=== PATIENT | female | born 1985 | race Caucasian/White ===

== ENCOUNTER 2021-03-08 15:10 | Emergency (ER) | payer MEDICARE, OTHER | END 2021-03-08 17:49 | disposition home or self-care (01) | LOC: FER 15:10 | DX: R56.9 Unspecified convulsions (principal); S00.83XA Contusion of other part of head, initial encounter; S80.12XA Contusion of left lower leg, initial encounter; Z90.710 Acquired absence of both cervix and uterus; Z88.5 Allergy status to narcotic agent; Z91.041 Radiographic dye allergy status; Z88.6 Allergy status to analgesic agent; Z88.8 Allergy status to other drugs, medicaments and biological substances; W01.10XA Fall on same level from slipping, tripping and stumbling with subsequent striking against unspecified object, initial encounter | CPT/HCPCS: 70486; 72125; 73590 ==

== ENCOUNTER 2021-08-23 23:22 | Emergency (ER) | payer MEDICARE, OTHER | END 2021-08-24 01:00 | disposition home or self-care (01) | LOC: FER 23:22 | DX: G43.909 Migraine, unspecified, not intractable, without status migrainosus (principal) | CPT/HCPCS: J1200; J2765; J3230; J7030 ==

== ENCOUNTER 2021-09-11 22:11 | Emergency (ER) | payer MEDICARE, OTHER ==
[2021-09-12 00:56] LABS: BASOPHIL 0.6 % (0-2); HCT 41.9 % (37.0-47.0); HGB 13.7 g/dl (12.5-16.0); MCH 30.4 pg (25.0-31.0); MCHC 32.7 g/dL (32.0-36.0); MCV 93.1 fL (78.0-100.0); MONOCYTE 6.7 % (0-12); MPV 9.3 fL (6.0-9.5); NEUTROPHIL 56.2 % (41-80); NRBC 0; PLT 340 K/uL (150-400); RDW 11.8 % (11.5-14.0); WBC 10.9 K/uL (4.0-10.5)
[2021-09-12 01:19] LABS: ALBUMIN 3.9 g/dL (3.4-5.0); BILIRUBIN - TOTAL 0.2 mg/dL (0.2-1.0); BUN/CREAT RATIO (CALC) 14.1 RATIO; CREATININE 0.78 mg/dL (0.51-0.95); GLOBULIN (CALCULATION) 3.7 g/dL; POTASSIUM 3.8 mmol/L (3.5-5.1); TOTAL PROTEIN 7.6 g/dL (6.4-8.2)
== END 2021-09-12 02:25 | disposition home or self-care (01) ==
LOC: FER 22:11
PROVIDERS: Emergency Medicine
DX: G43.909 Migraine, unspecified, not intractable, without status migrainosus (principal); I10 Essential (primary) hypertension; Z88.1 Allergy status to other antibiotic agents; Z88.5 Allergy status to narcotic agent; Z88.6 Allergy status to analgesic agent; Z91.041 Radiographic dye allergy status; Z88.8 Allergy status to other drugs, medicaments and biological substances; Z79.899 Other long term (current) drug therapy
CPT/HCPCS: 36415; 80053; 85025; J1200; J2765; J3230; J7030

== ENCOUNTER 2021-10-31 05:35 | Emergency (ER) | payer MEDICARE, OTHER | END 2021-10-31 08:00 | disposition home or self-care (01) | LOC: FER 05:35 | DX: G43.909 Migraine, unspecified, not intractable, without status migrainosus (principal) | CPT/HCPCS: J0780; J1200; J3230 ==

== ENCOUNTER 2022-01-12 00:38 | Emergency (ER) | payer MEDICARE, OTHER | END 2022-01-12 01:47 | disposition home or self-care (01) | LOC: FER 00:38 | DX: G43.909 Migraine, unspecified, not intractable, without status migrainosus (principal); Z88.5 Allergy status to narcotic agent; Z88.6 Allergy status to analgesic agent; Z88.2 Allergy status to sulfonamides; Z88.1 Allergy status to other antibiotic agents; Z91.041 Radiographic dye allergy status; Z91.048 Other nonmedicinal substance allergy status; Z28.311 Partially vaccinated for COVID-19 | CPT/HCPCS: J0780; J1200; J3230; J7040 ==

== ENCOUNTER 2022-02-09 20:27 | Emergency (ER) | payer OTHER | END 2022-02-09 22:09 | disposition left against medical advice (07) | LOC: FER 20:27 | DX: Z53.21 Procedure and treatment not carried out due to patient leaving prior to being seen by health care provider (principal) ==

== ENCOUNTER 2022-03-11 11:10 | Emergency (ER) | payer OTHER ==
[2022-03-11 12:01] LABS: BASOPHIL 0.7 % (0-2); HCT 40.4 % (37.0-47.0); HGB 13.1 g/dl (12.5-16.0); LYMPHOCYTE 29.2 % (15-48); MCH 30.5 pg (25.0-31.0); MCHC 32.4 g/dL (32.0-36.0); MONOCYTE 6.8 % (0-12); NEUTROPHIL 60.8 % (41-80); NRBC 0; PLT 344 K/uL (150-400); RDW 12.9 % (11.5-14.0); WBC 7.6 K/uL (4.0-10.5)
[2022-03-11 12:12] LABS: INR 1.01 (0.9-1.2); PTT 28.9 SECONDS (24.9-34.6)
[2022-03-11 12:13] LABS: D-DIMER < 0.27 ug/mLFEU (0.00-0.41)
[2022-03-11 12:13] LABS: CLARITY CLEAR (CLEAR); COLOR YELLOW (YELLOW); GLUCOSE (U) NORMAL (NORMAL); PROTEIN NEGATIVE (NEGATIVE)
[2022-03-11 12:14] LABS: BILIRUBIN NEGATIVE (NEGATIVE); BLOOD NEGATIVE Ery/uL (NEGATIVE); LEUKOCYTES NEGATIVE Leu/uL (NEGATIVE); NITRITE NEGATIVE (NEGATIVE); UROBILINOGEN 0.2 mg/dL (0.2-1.0)
[2022-03-11 12:39] LABS: CORONAVIRUS 2019 SARS-COV-2 NEGATIVE (NEGATIVE); INFLUENZA A NAA NEGATIVE (NEGATIVE)
[2022-03-11 12:50] LABS: ALBUMIN 3.9 g/dL (3.4-5.0); ALKALINE PHOSHATASE 85 U/L (46-116); ALT 64 U/L (14-59); AST 36 U/L (15-37); BILIRUBIN - TOTAL 0.3 mg/dL (0.2-1.0); BUN 9 mg/dL (7-18); CHLORIDE 108 mmol/L (98-107); CO2 (BICARBONATE) 24 mmol/L (21-32); CREATININE 0.75 mg/dL (0.51-0.95); GLOBULIN (CALCULATION) 3.5 g/dL; GLUCOSE 108 mg/dL (74-106); LIPASE 145 U/L (73-393); POTASSIUM 3.6 mmol/L (3.5-5.1); TOTAL PROTEIN 7.4 g/dL (6.4-8.2)
[2022-03-11] MEDS ORDERED: PHENERGAN25 M1 PO (13:14)
== END 2022-03-11 13:50 | disposition home or self-care (01) ==
LOC: FER 11:10
PROVIDERS: Internal Medicine
DX: R07.89 Other chest pain (principal); R42 Dizziness and giddiness; R11.2 Nausea with vomiting, unspecified; Z88.6 Allergy status to analgesic agent; Z88.5 Allergy status to narcotic agent; Z88.4 Allergy status to anesthetic agent; Z91.041 Radiographic dye allergy status; Z91.048 Other nonmedicinal substance allergy status; Z20.822 Contact with and (suspected) exposure to COVID-19
CPT/HCPCS: 36415; 71045; 80053; 81003; 83690; 83880; 84145; 84484; 85025; 85379; 85610; 85730; 93005; J2550; J3475; U0002

== ENCOUNTER 2022-03-14 17:20 | Emergency (ER) | payer OTHER ==
[~2022-03-14 17:20] MED LIST: PHENERGAN25 M1 PO
[2022-03-14 18:37] LABS: BASOPHIL 0.7 % (0-2); EOSINOPHIL 1.9 % (0-5); HCT 38.8 % (37.0-47.0); HGB 13.1 g/dl (12.5-16.0); LYMPHOCYTE 30.7 % (15-48); MCH 31.2 pg (25.0-31.0); MCHC 33.8 g/dL (32.0-36.0); MCV 92.4 fL (78.0-100.0); MONOCYTE 6.9 % (0-12); MPV 8.7 fL (6.0-9.5); NEUTROPHIL 59.4 % (41-80); NRBC 0; PLT 369 K/uL (150-400); WBC 11.8 K/uL (4.0-10.5)
[2022-03-14 19:00] LABS: ALBUMIN 3.7 g/dL (3.4-5.0); ALKALINE PHOSHATASE 89 U/L (46-116); ALT 57 U/L (14-59); AST 20 U/L (15-37); BILIRUBIN - TOTAL 0.2 mg/dL (0.2-1.0); BUN 7 mg/dL (7-18); BUN/CREAT RATIO (CALC) 8.9 RATIO; CHLORIDE 109 mmol/L (98-107); CO2 (BICARBONATE) 25 mmol/L (21-32); CREATININE 0.79 mg/dL (0.51-0.95); GLOBULIN (CALCULATION) 3.4 g/dL; GLUCOSE 103 mg/dL (74-106); POTASSIUM 3.1 mmol/L (3.5-5.1); TOTAL PROTEIN 7.1 g/dL (6.4-8.2)
== END 2022-03-14 21:40 | disposition home or self-care (01) ==
LOC: FER 17:20
PROVIDERS: Emergency Medicine
DX: R07.89 Other chest pain (principal); R10.9 Unspecified abdominal pain; Z88.8 Allergy status to other drugs, medicaments and biological substances; Z88.2 Allergy status to sulfonamides; Z91.041 Radiographic dye allergy status; Z88.6 Allergy status to analgesic agent; Z28.311 Partially vaccinated for COVID-19
CPT/HCPCS: 36415; 74022; 80053; 84484; 85025; 85379; 93005; J1885; J2405; J7030